=== PATIENT | male | born 1950 | race Caucasian/White ===

== ENCOUNTER 2023-12-29 20:07 | Inpatient (IN) | payer MEDICAID ==
[~2023-12-29] VITALS: Ht 165.1 cm; Wt 72.6 kg
[2023-12-29 20:14] VITALS: RESP 26
[2023-12-29 21:51] LABS: HEMATOCRIT. 32.8 % (42.0-52.0); HEMOGLOBIN. 10.6 g/dL (14.0-18.0); MEAN CORPUSCULAR HEMOGLOBIN 29.5 pg (28.0-32.0); MEAN CORPUSCULAR HGB CONC 32.1 g/dL (31.0-37.0); MEAN CORPUSCULAR VOLUME 91.9 fL (80.0-94.0); MEAN PLATELET VOLUME 9.9 fl (7.4-10.4); PLATELET 117 x1000/uL (130-400); RED BLOOD CELL COUNT 3.57 mill/uL (4.7-6.1); RED CELL DISTRIBUTION WIDTH 16.4 % (11.6-14.6); WHITE BLOOD COUNT 11.4 x1000/uL (4.5-11.0)
[2023-12-29 21:54] LABS: DIFFERENTIAL COMMENT 1
[2023-12-29 21:55] LABS: CHLORIDE 104 mEq/L (98-107); SODIUM 141 mEq/L (136-145)
[2023-12-29 21:56] LABS: CALCIUM 8.6 mg/dL (8.7-10.4); CARBON DIOXIDE 20 mEq/L (21-32)
[2023-12-29 22:01] LABS: GLUCOSE 122 mg/dL (70-105)
[2023-12-29 22:22] LABS: ANISOCYTOSIS 1+; PLATELET ESTIMATE DECREASED
[2023-12-29 22:24] LABS: CREATININE 12.5 mg/dL (0.6-1.3); POTASSIUM 6.8 mEq/L (3.5-5.1); UREA NITROGEN BLOOD 117 mg/dL (9-23)
[2023-12-29 22:25] LABS: TROPONIN I HIGH SENSITIVITY 57 ng/L (3.0-53)
[2023-12-29] MEDS: ACETAMINOPHEN 325MG TABLET PO NR (23:07)
[2023-12-29] MEDS: PIPERACILLIN/TAZO 3.375G/50ML 50 ML IV ONE (23:07)
[2023-12-29 23:22] LABS: HEPATITIS B SURFACE ANTIGEN NEGATIVE (Negative)
[2023-12-29 23:42] LABS: HEPATITIS A AB IGM NEGATIVE (Negative)
[2023-12-29 23:43] LABS: HEPATITIS B CORE AB IGM NEGATIVE (Negative); HEPATITIS C AB NON REACTIVE (Neg) (Negative)
[2023-12-29] MEDS: VANCOMYCIN 1G PREMIX 200 ML IV ONE (23:45)
[2023-12-30] VITALS (16 sets, daily range): BP systolic 119–141; BP diastolic 59–74; PULSE 65–83; RESP 15–21; TEMP 97.5–98.2; O2SAT 95–99
[2023-12-30] MEDS ORDERED: ONDANSETRON HCL 4MG/2ML INJ IV PRN (08:15)
[2023-12-30] MEDS ORDERED: ACETAMINOPHEN 325MG TABLET PO PRN (08:15)
[2023-12-30] MEDS: AZITHROMYCIN 250 MG TABLET PO SCH (09:28)
[2023-12-30] MEDS: CEFTRIAXONE 1GM/50ML 50 ML IV SCH (10:10)
[2023-12-30 11:27] LABS: HEMATOCRIT. 32.2 % (42.0-52.0); HEMOGLOBIN. 10.7 g/dL (14.0-18.0); MEAN CORPUSCULAR HEMOGLOBIN 29.9 pg (28.0-32.0); MEAN CORPUSCULAR HGB CONC 33.2 g/dL (31.0-37.0); MEAN CORPUSCULAR VOLUME 89.9 fL (80.0-94.0); MEAN PLATELET VOLUME 9.8 fl (7.4-10.4); PLATELET 111 x1000/uL (130-400); RED BLOOD CELL COUNT 3.58 mill/uL (4.7-6.1); RED CELL DISTRIBUTION WIDTH 16.2 % (11.6-14.6); WHITE BLOOD COUNT 8.2 x1000/uL (4.5-11.0)
[2023-12-30 11:29] LABS: DIFFERENTIAL COMMENT 1
[2023-12-30 11:54] LABS: POTASSIUM 4.8 mEq/L (3.5-5.1)
[2023-12-30 11:55] LABS: CALCIUM 8.1 mg/dL (8.7-10.4)
[2023-12-30 12:03] LABS: CREATININE 8.6 mg/dL (0.6-1.3)
[2023-12-30] MEDS: SEVELAMER CARBONATE 800 MG TABLET PO SCH (12:17)
[2023-12-30] MEDS: IPRATROPIUM/ALBUTEROL 0.5-3(2.5)MG/3ML NEB HHN SCH (12:31)
[2023-12-30 15:48] LABS: PLATELET ESTIMATE NORMAL
[2023-12-31] VITALS (17 sets, daily range): BP systolic 103–142; BP diastolic 37–80; PULSE 66–87; RESP 14–20; TEMP 97.5–98.2; O2SAT 94–96
[2023-12-31 06:41] LABS: POTASSIUM 4.8 mEq/L (3.5-5.1)
[2023-12-31 06:43] LABS: CALCIUM 7.8 mg/dL (8.7-10.4)
[2023-12-31 06:48] LABS: CREATININE 10.2 mg/dL (0.6-1.3)
[2023-12-31 07:01] LABS: BASOPHILS % 0.7 % (0.0-2.0); EOSINOPHILS % 1.9 % (0.0-5.0); HEMATOCRIT. 31.1 % (42.0-52.0); HEMOGLOBIN. 10.1 g/dL (14.0-18.0); LYMPHOCYTES % 12.4 % (20.0-50.0); MEAN CORPUSCULAR HEMOGLOBIN 29.1 pg (28.0-32.0); MEAN CORPUSCULAR HGB CONC 32.5 g/dL (31.0-37.0); MEAN CORPUSCULAR VOLUME 89.8 fL (80.0-94.0); MEAN PLATELET VOLUME 10.5 fl (7.4-10.4); MONOCYTES % 8.3 % (2.0-8.0); NEUTROPHILS % 76.7 % (40.0-76.0); PLATELET 99 x1000/uL (130-400); RED BLOOD CELL COUNT 3.46 mill/uL (4.7-6.1); RED CELL DISTRIBUTION WIDTH 16.3 % (11.6-14.6); WHITE BLOOD COUNT 5.5 x1000/uL (4.5-11.0)
[2023-12-31] MEDS: FOLIC ACID/VITAMIN B COMP W-C TABLET PO SCH (09:45)
[2023-12-31 13:23] LABS: POTASSIUM 4.3 mEq/L (3.5-5.1)
[2024-01-01] VITALS (9 sets, daily range): BP systolic 109–130; BP diastolic 49–85; PULSE 79–98; RESP 14–18; TEMP 97.6–98.6; O2SAT 96–99
[2024-01-01] MEDS: ENOXAPARIN 40MG/0.4ML SYR SUBCUT NR (11:12)
[2024-01-01] MEDS ORDERED: LEVO250T74 MT (14:27)
== END 2024-01-01 18:05 | disposition home or self-care (01) | DRG 133 ==
LOC: ER 20:07 → MICUSO 22:29 → 5WST 12-30 07:36 → 3WST 12-30 15:20
PROVIDERS: ADMIT Internal Medicine; ATTEND Internal Medicine
PROC: 5A09357 Assistance with Respiratory Ventilation, Less than 24 Consecutive Hours, Continuous Positive Airway Pressure (ICD-10-PCS; principal; 2023-12-29)
PROC: 5A1D70Z Performance of Urinary Filtration, Intermittent, Less than 6 Hours Per Day (ICD-10-PCS; 2023-12-30)
PROC: 5A1D70Z Performance of Urinary Filtration, Intermittent, Less than 6 Hours Per Day (ICD-10-PCS; 2023-12-31)
DX: J96.01 Acute respiratory failure with hypoxia (principal); I13.2 Hypertensive heart and chronic kidney disease with heart failure and with stage 5 chronic kidney disease, or end stage renal disease; J18.9 Pneumonia, unspecified organism; E87.20 Acidosis, unspecified; D69.6 Thrombocytopenia, unspecified; N18.6 End stage renal disease; E11.22 Type 2 diabetes mellitus with diabetic chronic kidney disease; E87.5 Hyperkalemia; D64.9 Anemia, unspecified; E78.00 Pure hypercholesterolemia, unspecified; I50.9 Heart failure, unspecified; Z99.2 Dependence on renal dialysis; Z91.158 Patient's noncompliance with renal dialysis for other reason; Z79.899 Other long term (current) drug therapy
CPT/HCPCS: 36415; 71045; 80048; 83605; 83880; 84132; 84484; 85025; 86705; 86709; 87340; 90935; 93005; 94640; 94660; 99285; J0696; J1650; J2543; J3370